=== PATIENT | female | born 1995 | race Caucasian/White ===

== ENCOUNTER 2021-01-26 15:44 | Inpatient (IN) | payer OTHER, SELFPAY ==
[~2021-01-26] VITALS: Ht 152.4 cm; Wt 61.2 kg
[2021-01-26] MEDS ORDERED: NALBUPHINE 10 MG/ML AMP IVP PRN (16:05)
[2021-01-26] MEDS ORDERED: PROMETHAZINE 25 MG/ML VIAL IVP PRN (16:05)
[2021-01-26] MEDS ORDERED: OXYTOCIN 20 UNITS in LACTATED RINGERS 1,000 ML IV SCH (16:05)
[2021-01-26] MEDS: LACTATED RINGERS 1,000 ML IV SCH ×2 (16:21→20:40)
[2021-01-26 17:41] VITALS: BP 135/74
[2021-01-26 18:12] LABS: BASOPHILS % (AUTO) 0.2 % (0.0-2.0); EOSINOPHILS # (AUTO) 0.1 K/uL (0-0.4); EOSINOPHILS % (AUTO) 1.2 % (0.0-4.0); HEMATOCRIT 32.5 % (36-48); HEMOGLOBIN 11.4 g/dL (12.0-16.0); LYMPHOCYTES # (AUTO) 2.3 K/uL (2.5-16.5); LYMPHOCYTES % (AUTO) 23.1 % (20.5-51.1); MEAN CORPUSCULAR HEMOGLOBIN 30 pg (27-31); MEAN CORPUSCULAR HGB CONC 35 g/dL (33-37); MEAN CORPUSCULAR VOLUME 85.4 fL (80-94); MONOCYTES # (AUTO) 0.8 K/uL (0.8-1.0); MONOCYTES % (AUTO) 8.2 % (1.7-9.3); NEUTROPHILS # (AUTO) 6.6 K/uL (1.8-7.7); NEUTROPHILS % (AUTO) 67.3 % (42.2-75.2); PLATELET COUNT (AUTO) 329 K/uL (140-450); RED BLOOD CELL COUNT(AUTO) 3.81 MIL/uL (4.20-5.40); RED CELL DISTRIBUTION WIDTH 13.8 % (11.6-13.7); WHITE BLOOD COUNT (AUTO) 9.9 K/uL (4.8-10.8)
[2021-01-26 18:20] LABS: APPEARANCE,URINE HAZY (CLEAR); BILIRUBIN,URINE NEGATIVE (NEGATIVE); BLOOD, URINE NEGATIVE (NEGATIVE); COLOR,URINE YELLOW (YELLOW); LEUKOCYTE ESTERASE ,URINE 2+ (NEGATIVE); NITRITE, URINE NEGATIVE (NEGATIVE); UGLUCOSE NEGATIVE (NEGATIVE)
[2021-01-26 18:27] LABS: RBC,URINE 0-5 /HPF (0-5); WBC,URINE 16-25 (MOD) /HPF (0-5)
[2021-01-26 18:28] LABS: ALBUMIN 2.7 g/dL (3.4-5.0); ANION GAP 15.2 (8-16); CARBON DIOXIDE 23.3 mmol/L (21-32); CREATININE 0.6 mg/dL (0.6-1.3); POTASSIUM 3.5 mmol/L (3.5-5.1); TOTAL BILIRUBIN 0.4 mg/dL (0.0-1.0)
[2021-01-26] MEDS ORDERED: ROPIVACAINE 0.2%/NS PREMIX 200 ML EPI ONE (20:53)
[2021-01-26] MEDS ORDERED: OXYTOCIN 20 UNITS/LR PREMIX 1,000 ML IV ONE (22:52)
[2021-01-27] MEDS ORDERED: TERBUTALINE 2.5 MG TAB ONE (00:26)
[2021-01-27] MEDS ORDERED: TERBUTALINE 1 MG/ML VIAL SUBQ ONE (00:27)
[2021-01-27] MEDS ORDERED: TERBUTALINE 1 MG/ML VIAL SUBQ SCH (00:30)
[2021-01-27] MEDS: LACTATED RINGERS 1,000 ML IV SCH ×2 (00:57→05:43)
[2021-01-27] MEDS ORDERED: TEMAZEPAM 15 MG CAP PO PRN ×2 (14:10→14:45)
[2021-01-27] MEDS ORDERED: METHYLERGONOVINE 0.2 MG TAB PO PRN ×2 (14:10→14:45)
[2021-01-27] MEDS ORDERED: BENZOCAINE/MENTHOL 20%-0.5% 60 GM CAN TP PRN ×2 (14:10→14:45)
[2021-01-27] MEDS ORDERED: MEASLES, MUMPS, AND RUBELLA 1 VIAL SQVAC ONE (14:10)
[2021-01-27] MEDS ORDERED: OXYTOCIN 10 UNITS/ML VIAL IM PRN ×2 (14:10→14:45)
[2021-01-27] MEDS ORDERED: oxyCODONE/APAP 5/325 MG 1 TAB TAB PO PRN ×2 (14:10→14:45)
[2021-01-27] MEDS ORDERED: HYDROcodone/APAP 5/325 MG 1 TAB TAB PO PRN (14:10)
[2021-01-27] MEDS ORDERED: METHYLERGONOVINE 0.2 MG/ML AMP IM PRN ×2 (14:10→14:45)
[2021-01-27] MEDS ORDERED: oxyCODONE/APAP 5/325 MG 1 TAB TAB ONE (14:11)
[2021-01-27] MEDS ORDERED: MEASLES, MUMPS, AND RUBELLA 1 VIAL SQVAC PRN (14:15)
[2021-01-27] MEDS: oxyCODONE/APAP 5/325 MG 1 TAB TAB PO PRN (15:45)
[2021-01-27] MEDS ORDERED: DOCUSATE SOD/SENNA 50/8.6 MG 1 TAB PO SCH (21:00)
[2021-01-28] MEDS: oxyCODONE/APAP 5/325 MG 1 TAB TAB PO PRN (00:26)
[2021-01-28 08:38] LABS: HEMATOCRIT 31.6 % (36-48); HEMOGLOBIN 10.7 g/dL (12.0-16.0)
--- NOTE | 2021-01-28 08:49 | NUR ---
PATIENT HAS BEEN SCREENED AND CATEGORIZED LOW NUTRITION RISK. PATIENT WILL BE SEEN WITHIN 7 DAYS OF ADMISSION. 02/02/[address]
[2021-01-28] MEDS ORDERED: FERR325E14 PO (15:21)
[2021-01-28] MEDS ORDERED: IBUP-2213 PO (15:22)
[2021-01-28] MEDS ORDERED: DOCUSATE SOD/SENNA 50/8.6 MG 1 TAB PO SCH (21:00)
[2021-01-29] MEDS: oxyCODONE/APAP 5/325 MG 1 TAB TAB PO PRN (04:51)
== END 2021-01-29 09:50 | disposition home or self-care (01) | DRG 560 ==
LOC: MLD 15:44 → MFCC 01-27 16:50
PROVIDERS: ADMIT Obstetrics & Gynecology; ATTEND Obstetrics & Gynecology
PROC: 10E0XZZ Delivery of Products of Conception, External Approach (ICD-10-PCS; principal; 2021-01-27)
PROC: 0W8NXZZ Division of Female Perineum, External Approach (ICD-10-PCS; 2021-01-27)
DX: O76 Abnormality in fetal heart rate and rhythm complicating labor and delivery (principal); Z37.0 Single live birth; Z20.822 Contact with and (suspected) exposure to COVID-19; Z3A.39 39 weeks gestation of pregnancy
CPT/HCPCS: 36415; 80053; 81001; 85018; 85025; 86592; 86886; 86900; 86901; 87086; J2590; J2795; J3105

== ENCOUNTER 2022-08-17 13:49 | Inpatient (IN) | payer OTHER ==
[~2022-08-17] VITALS: Ht 152.4 cm; Wt 59.0 kg
[~2022-08-17 13:49] MED LIST: FERR325E14 PO; IBUP-2213 PO
[2022-08-17] MEDS ORDERED: AMPICILLIN 2,000 MG in NACL 0.9% 100 ML IV SCH (14:00)
[2022-08-17] MEDS ORDERED: METHYLERGONOVINE 0.2 MG/ML AMP IM PRN (14:00)
[2022-08-17] MEDS ORDERED: ONDANSETRON 4 MG/2 ML VIAL IVP PRN (14:00)
[2022-08-17] MEDS ORDERED: OXYTOCIN 20 UNITS in LACTATED RINGERS 1,000 ML IV SCH (14:00)
[2022-08-17] MEDS ORDERED: MORPHINE SULFATE 10 MG/ML VIAL IVP PRN (14:05)
[2022-08-17 14:15] VITALS: BP 126/64
[2022-08-17] MEDS: LACTATED RINGERS 1,000 ML IV SCH ×3 (14:18→23:10)
[2022-08-17 14:29] LABS: BASOPHILS % (AUTO) 0.5 % (0.0-2.0); EOSINOPHILS # (AUTO) 0.1 K/uL (0-0.4); EOSINOPHILS % (AUTO) 1.2 % (0.0-4.0); HEMATOCRIT 33.5 % (36-48); HEMOGLOBIN 11.7 g/dL (12.0-16.0); LYMPHOCYTES # (AUTO) 2.1 K/uL (2.5-16.5); LYMPHOCYTES % (AUTO) 20.6 % (20.5-51.1); MEAN CORPUSCULAR HEMOGLOBIN 30 pg (27-31); MEAN CORPUSCULAR HGB CONC 35 g/dL (33-37); MONOCYTES # (AUTO) 0.8 K/uL (0.8-1.0); MONOCYTES % (AUTO) 7.7 % (1.7-9.3); PLATELET COUNT (AUTO) 291 K/uL (140-450); RED CELL DISTRIBUTION WIDTH 13.8 % (11.6-13.7)
[2022-08-17 14:49] LABS: ALBUMIN 2.6 g/dL (3.4-5.0); ANION GAP 16.4 (8-16); CARBON DIOXIDE 22.4 mmol/L (21-32); CREATININE 0.6 mg/dL (0.6-1.3); POTASSIUM 3.8 mmol/L (3.5-5.1); TOTAL BILIRUBIN 0.4 mg/dL (0.0-1.0)
[2022-08-17 14:50] LABS: PROTHROMBIN TIME 9.1 secs (10.8-13.4)
[2022-08-17 14:58] LABS: LEUKOCYTE ESTERASE ,URINE 4+ (NEGATIVE); NITRITE, URINE NEGATIVE (NEGATIVE)
[2022-08-17 14:59] LABS: BLOOD, URINE 3+ (NEGATIVE); PH,URINE 8.5 (5.0-9.0)
[2022-08-17 15:00] LABS: APPEARANCE,URINE CLOUDY (CLEAR); BILIRUBIN,URINE NEGATIVE (NEGATIVE); COLOR,URINE AMBER (YELLOW); UGLUCOSE NEGATIVE (NEGATIVE)
[2022-08-17 15:02] LABS: RBC,URINE 11-20 (MOD) /HPF (0-5)
[2022-08-17] MEDS ORDERED: ROPIVACAINE 0.2%/NS PREMIX 200 ML EPI ONE (15:06)
[2022-08-17] MEDS ORDERED: AMPICILLIN 1,000 MG in NACL 0.9% 50 ML IV SCH (18:00)
[2022-08-17] MEDS ORDERED: AMPICILLIN 2,000 MG VIAL ONE (18:42)
[2022-08-18] MEDS ORDERED: ROPIVACAINE 0.2%/NS PREMIX 200 ML EPI ONE (05:39)
[2022-08-18] MEDS ORDERED: OXYTOCIN 20 UNITS/LR PREMIX 1,000 ML IV ONE (07:57)
[2022-08-18] MEDS ORDERED: METHYLERGONOVINE 0.2 MG/ML AMP IM PRN (08:35)
[2022-08-18] MEDS ORDERED: TEMAZEPAM 15 MG CAP PO PRN (08:35)
[2022-08-18] MEDS ORDERED: OXYTOCIN 10 UNITS/ML VIAL IM PRN (08:35)
[2022-08-18] MEDS ORDERED: oxyCODONE/APAP 5/325 MG 1 TAB TAB PO PRN (08:35)
[2022-08-18] MEDS ORDERED: MEASLES, MUMPS, AND RUBELLA 1 VIAL SQVAC ONE (08:35)
[2022-08-18] MEDS ORDERED: IBUPROFEN 800 MG TAB PO PRN (08:35)
[2022-08-18] MEDS ORDERED: METHYLERGONOVINE 0.2 MG TAB PO PRN (08:35)
[2022-08-18 09:06] LABS: HEPATITIS B SURFACE ANTIGEN Negative (Negative)
--- NOTE | 2022-08-18 09:18 | NUR ---
PATIENT HAS BEEN SCREENED AND CATEGORIZED LOW NUTRITION RISK. PATIENT WILL BE SEEN WITHIN 7 DAYS OF ADMISSION. 08/24/22 REVIEWED BY [address]
[2022-08-18] MEDS: oxyCODONE/APAP 5/325 MG 1 TAB TAB PO PRN ×2 (09:56→15:14)
[2022-08-18] MEDS ORDERED: ACETAMINOPHEN EXTRA STRENGTH 500 MG TAB ONE (10:11)
[2022-08-18] MEDS ORDERED: LABETALOL 200 MG TAB PO STA (11:13)
[2022-08-18] MEDS ORDERED: LABETALOL 200 MG TAB ONE (11:15)
[2022-08-18] MEDS ORDERED: LABETALOL 20 MG/4 ML VIAL IVP SCH (11:20)
[2022-08-18] MEDS: FERROUS SULFATE 325 MG TABEC PO SCH (17:14)
[2022-08-18] MEDS ORDERED: DOCUSATE SOD/SENNA 50/8.6 MG 1 TAB PO SCH (21:00)
[2022-08-18] MEDS ORDERED: SENNA 8.6 MG TAB ONE ×2 (22:36→22:43)
[2022-08-18] MEDS ORDERED: DOCUSATE SOD/SENNA 50/8.6 MG 1 TAB ONE ×2 (23:28→23:32)
[2022-08-19 08:37] LABS: HEMATOCRIT 29.1 % (36-48)
[2022-08-19] MEDS: IBUPROFEN 600 MG TAB PO PRN ×2 (09:00→09:06)
[2022-08-19] MEDS: FERROUS SULFATE 325 MG TABEC PO SCH ×2 (09:01→18:36)
[2022-08-19] MEDS ORDERED: IBUPROFEN 800 MG TAB ONE (09:04)
== END 2022-08-19 21:55 | disposition home or self-care (01) | DRG 560 ==
LOC: MLD 13:49 → OBSVTOIN 13:50 → MFCC 08-18 15:09
PROVIDERS: ADMIT Obstetrics & Gynecology; ATTEND Obstetrics & Gynecology
PROC: 10D07Z6 Extraction of Products of Conception, Vacuum, Via Natural or Artificial Opening (ICD-10-PCS; principal; 2022-08-18)
PROC: 0KQM0ZZ Repair Perineum Muscle, Open Approach (ICD-10-PCS; 2022-08-18)
DX: O76 Abnormality in fetal heart rate and rhythm complicating labor and delivery (principal); Z37.0 Single live birth; R71.0 Precipitous drop in hematocrit; O70.1 Second degree perineal laceration during delivery; Z3A.39 39 weeks gestation of pregnancy; Z20.822 Contact with and (suspected) exposure to COVID-19
CPT/HCPCS: 36415; 51702; 80053; 81001; 85018; 85025; 85610; 85730; 86592; 86762; 86886; 86900; 86901; 87086; 87340; 87653-90; J0290; J2210; J2590; J2795; J7120